=== PATIENT | male | born 1945 | race Caucasian/White ===

== ENCOUNTER 2024-10-11 08:18 | Day surgery (SDC) | payer MEDICARE, OTHER ==
[~2024-10-11] VITALS: Ht 177.8 cm; Wt 93.0 kg
[~2024-10-11 08:18] MED LIST: ALLOPURINOL100 MG PO; AMARYL2 MG; ASPIR-LOW81 MG PO; ASPIRIN81 MG; BENADRYL25 MG PO; CALCIUM500 MG; CALCIUM500 MG PO; CEFAZOLIN SODIUM 2 GM/20 ML SYR IV SCH; CELEBREX100 MG PO; CINACALCET HCL60 MG PO; CLARITIN10 M2 PO; COZAAR25 MG PO; CULTURELLE1 EACH PO; DIAZEPAM5 MG; EPOGEN10000 UNIT INJ; FARXIGA10 MG PO; FINASTERIDE5 MG PO; GABAPENTIN100 MG PO; GLIMEPIRIDE4 MG PO; HUMALOG100 UNIT/2 SUB-Q; HUMULIN R100 UNIT/1 INJ; HYDROCHLOROTHIA25 MG; HYDROCHLOROTHIA25 MG PO; IBLOOD GLUCOSE TEST STRIP 1 EA TEST VI PRN; LACTATED RINGER'S 1,000 ML IV SCH; LIDOCAINE HCL 1% 5 ML SDV INJ ONE; LIPITOR80 MG; LIPITOR80 MG PO; LISINOPRIL40 MG PO; METFORMIN HCL1000 MG; METFORMIN HCL1000 MG PO; METOPROLOL SUCC25 MG PO; MULTI VITAMIN1 EACH; NITROGLYCERIN0.4 MG SL; NORCO 5-325 TA1 EACH; NORCO 5-325 TA1 EACH PO; NORVASC5 MG; NORVASC5 MG PO; NUVIGIL200 MG PO; ONCE DAILY1 EACH PO; RENAL CAPS SOFTG1 MG PO; RENVELA800 MG PO; VAZALORE81 MG PO; VITAMIN B12500 MCG PO; VITAMIN B650 MG PO; ZESTRIL40 MG; ZYRTEC10 M3 PO
[2024-10-11 08:42] VITALS: BP 145/65
[2024-10-11] MEDS ORDERED: LIDOCAINE HCL 2% 5 ML SDV ONE (09:49)
[2024-10-11] MEDS ORDERED: SODIUM CHLORIDE 0.9% 1,000 ML IV ONE (09:51)
--- NOTE | 2024-10-11 10:54 | NUR ---
10/11/24 1054 Leopoldo,Yanni 1042 PT ARRIVED TO PACU ASLEEP, PT WAKES TO VERBAL STIMULI AND O2 REMOVED. PT REORIENTED TO PACU AND DENIES CONCERNS, VSS. PT ENCOURAGED TO PASS GAS.
[2024-10-11 11:13] VITALS: BP 133/77
--- NOTE | 2024-10-11 11:25 | OR ---
[facility] [address], [place] [address] Signed DATE OF OPERATION: 10/11/2024 SURGEON: Christiana Adames MD PREOPERATIVE DIAGNOSES: 1. Colon surveillance; history of polyp of cecum. 2. Chronic renal failure with home intraperitoneal dialysis. 3. History of aortic valve replacement in April 2024. POSTOPERATIVE DIAGNOSIS: Complex polyp of cecum (recurrent). PROCEDURES: Total colonoscopy to cecum with hot snare and cold morcellation excision of polypoid tissue with application of hemoclip. ANESTHESIA: Intravenous sedation, propofol, Darrel Blue, DONKEY DOCTOR, preoperative antibiotic Ancef. INDICATION: This 79-year-old white man is a patient of Dr. Alaniz and has a complex past medical history including aortic valve replacement in April of 2024 and history of colonoscopy last performed in 2019, at which time he had residual polyp from a previous excision site undergoing mucosal lift excision of the residual polyp. Pathology showed tubulovillous adenoma. He has chronic renal failure for which he does peritoneal dialysis at home. He is admitted at this time to undergo colonoscopy for surveillance regarding the cecal polyp. He understands the risk of bleeding, infection, and perforation. Preoperative antibiotic Ancef was given, though current guidelines regarding the valve do not require prophylaxis, but given his underlying medical issues, it is given nevertheless. FINDINGS: The prep was adequate. There were some areas that were less well prepped and others to be sure. The cecum itself demonstrated in the area of prior tattoo, a somewhat complex multilobulated obvious adenomatous polyp. This was excised with hot and cold snare polypectomy technique as well as morcellation maneuvers removing essentially all the polyp so far as could be told. Hemoclip was applied as well. There were no other polyps identified during the course of the remaining colonoscopy. DESCRIPTION OF PROCEDURE: Electronically Signed By: CHRISTIANA ADAMES MD 10/11/24 1125 PATIENT NAME: CHRISTIANO ARTHUR OPERATIVE REPORT DATE OF : 41 REPORT #: [id number] PHYSICIAN: CHRISTIANA ADAMES MD PCP: JIGNA ALANIZ MD REPORT IS CONFIDENTIAL AND NOT TO BE RELEASED WITHOUT AUTHORIZATION [facility] [address], [place] [address] Signed The patient was brought to the endoscopy suite and placed in lateral decubitus position. He was given preoperative antibiotic Ancef. He was given intravenous sedation with propofol infusional technique by the avionics technician. Digital rectal examination was normal. An Olympus video colonoscope was passed in the rectum and manipulated throughout the colon ultimately passed the areas of some solid stool. Admittedly, the prep could have been better, but nevertheless the scope was passed ultimately to the cecum. Ileocecal valve and appendiceal orifice were identified and in the cecum with a polypoid multilobulated polyp on the bed of previous Endo samir tattoo dye. The polyp appeared soft and not fixed and not likely malignant. Using hot snare polypectomy technique, multiple shards of the polyp were excised. Cold morcellation technique and cold snare technique was also used ultimately excising the polyp fully. Photographs were taken of course. The polypoid material was placed in a Sykes net and other portions of polyps were retrieved with suction in a trap in the suction line. Irrigation was undertaken more fully showing good obliteration of the polypoid material. Area of persistent oozing was secured with a hemoclip with good effect. Irrigation was undertaken further and the scope was then withdrawn throughout. There were no other polyps or other abnormality. The scope was removed and the patient was taken to the recovery room in good condition. CONCLUDING DIAGNOSIS: Complex recurrent polyp at previous mucosal lift polypectomy site. PLAN: Repeat colonoscopy in six months or so. Special attention to prep in the future, continued use of propofol of course for sedation in his case. MD CARLENE Graham/CARIDADL /[id number] cc: Jigna Alaniz MD Electronically Signed By: CHRISTIANA ADAMES MD 10/11/24 1125 PATIENT NAME: CHRISTIANO ARTHUR OPERATIVE REPORT DATE OF : 41 REPORT #: [id number] PHYSICIAN: CHRISTIANA ADAMES MD PCP: JIGNA ALANIZ MD REPORT IS CONFIDENTIAL AND NOT TO BE RELEASED WITHOUT AUTHORIZATION [facility] [address] [place] [id number] Signed Copies: JIGNA ALANIZ MD ~ Electronically Signed By: CHRISTIANA ADAMES MD 10/11/24 1125 PATIENT NAME: CHRISTIANO ARTHUR OPERATIVE REPORT DATE OF : 41 REPORT #: [id number] PHYSICIAN: CHRISTIANA ADAMES MD PCP: JIGNA ALANIZ MD REPORT IS CONFIDENTIAL AND NOT TO BE RELEASED WITHOUT AUTHORIZATION
--- NOTE | 2024-10-15 12:42 | PATH ---
[facility] [address] [place], [place] [address] Signed SPECIMEN(S): A CECUM COLON POLYP SPECIMEN SOURCE: A. CECUM COLON POLYP CLINICAL HISTORY: Surveillance. History of colon polyps. Postop: Complex polyp of cecum FINAL PATHOLOGIC DIAGNOSIS: Cecal polyp - Fragments of tubulovillous adenoma, negative for high-grade dysplasia or malignancy. AMB MICROSCOPIC EXAMINATION: Histologic sections of all submitted blocks are examined by light microscopy. These findings, together with the gross examination, support the pathologic diagnosis. GROSS DESCRIPTION: The specimen, labeled and designated "Frederick, cecum polyp," is received in formalin and consists of multiple lozano soft tissue fragments, 0.1-0.2 cm. Entirely submitted in (A1). JS (under the direct supervision of a pathologist) The Gross Description was prepared using a voice recognition system. The report was reviewed for accuracy; however, sound-alike word errors, addition and/or deletions may occur. If there is any question about this report, please contact Client Services. ADDITIONAL NOTES: Immunohistochemical and/or in situ hybridization studies if performed in this case included appropriate positive controls that reacted as expected. This test was developed and its performance characteristics determined by [facility]. It has not been cleared or approved by the U.S. Food and Drug Administration. The FDA has determined that such clearance or approval is not necessary. This test is used for clinical purposes. It should not be regarded as investigational or for research. [facility] is certified under the Clinical Laboratory Improvement Amendments of 1988 (CLIA) as qualified to perform high complexity clinical laboratory testing. PATIENT NAME: CHRISTIANO ARTHUR PATHOLOGY DATE OF : 41 REPORT #: [id number] PHYSICIAN: THEO VALE PCP: JIGNA JUAREZ MD REPORT IS CONFIDENTIAL AND NOT TO BE RELEASED WITHOUT AUTHORIZATION [address], [place] [address] Signed PERFORMING LABORATORY: Technical component was performed by [facility], [address] [place] [address] (CLIA# [id number]). [email or web address] - [address] [id number] Diagnostician: Sheila Mcgee MD Pathologist Electronically Signed 10/15/2024 Copies: ~ PATIENT NAME: CHRISTIANO ARTHUR PATHOLOGY DATE OF : 41 REPORT #: [id number] PHYSICIAN: THEO VALE PCP: JIGNA JUAREZ MD REPORT IS CONFIDENTIAL AND NOT TO BE RELEASED WITHOUT AUTHORIZATION
== END 2024-10-11 11:22 | disposition home or self-care (01) ==
LOC: DS 08:18
PROVIDERS: ATTEND Surgery
PROC: 0DBH8ZX Excision of Cecum, Via Natural or Artificial Opening Endoscopic, Diagnostic (ICD-10-PCS; principal; 2024-10-11 09:30)
DX: Z12.11 Encounter for screening for malignant neoplasm of colon (principal); D12.0 Benign neoplasm of cecum; E11.22 Type 2 diabetes mellitus with diabetic chronic kidney disease; N18.6 End stage renal disease; E66.3 Overweight; Z68.31 Body mass index [BMI] 31.0-31.9, adult; Z86.0101 Personal history of adenomatous and serrated colon polyps; Z86.73 Personal history of transient ischemic attack (TIA), and cerebral infarction without residual deficits; Z80.0 Family history of malignant neoplasm of digestive organs; Z79.02 Long term (current) use of antithrombotics/antiplatelets; Z79.4 Long term (current) use of insulin; Z79.82 Long term (current) use of aspirin; Z79.84 Long term (current) use of oral hypoglycemic drugs; Z79.899 Other long term (current) drug therapy; Z88.0 Allergy status to penicillin; Z88.5 Allergy status to narcotic agent; Z88.8 Allergy status to other drugs, medicaments and biological substances; Z91.040 Latex allergy status; Z95.2 Presence of prosthetic heart valve; Z99.2 Dependence on renal dialysis
CPT/HCPCS: 00811; C1889; J0690; J2003; J2704; J7030; J7121